=== PATIENT | male | born 1965 | race Caucasian/White ===

== ENCOUNTER 2023-04-22 09:13 | Outpatient (CLI) | payer BC, SELFPAY ==
[2023-04-22 10:02] LABS: Anion Gap 11.2 mEq/L (5-15); Blood Urea Nitrogen 16 mg/dl (9-20); Calcium 9.8 mg/dl (8.4-10.2); Carbon Dioxide 32 mmol/L (22.0-30.0); Chloride 100 mmol/L (98-107); Chol/HDL Ratio 8.1 (1-3.5); Cholesterol 234 mg/dl (140-200); Estimated Glomerular Filt Rate 87 ml/min (>60); GFR (African American) 105 ML/MIN (>60); Glucose 102 mg/dl (74-100); HDL Cholesterol 29 mg/dl (40-60); Potassium 4.2 mmoL/L (3.5-5.1); Sodium 139 mmol/L (136-145); Triglycerides 186 mg/dl (30-150); VLDL Cholesterol 37 mg/dL (0-40)
[2023-04-22 10:13] LABS: Direct LDL Cholesterol 143.65 mg/dL (100-129)
== END 2023-04-22 23:59 ==
LOC: LAB 09:13
PROVIDERS: PCP Family Medicine; Visit Provider Family Medicine
DX: I10 Essential (primary) hypertension (principal)
CPT/HCPCS: 36415; 80048; 80061